=== PATIENT | male | born 1995 | race Caucasian/White ===

== ENCOUNTER 2018-07-10 09:34 | Outpatient (CLI) | payer BC ==
[2018-07-10] MEDS ORDERED: None at this time (11:19)
== END 2018-07-10 23:59 | disposition home or self-care (01) ==
LOC: STAR 09:34
PROVIDERS: ATTEND Surgery
DX: Z02.9 Encounter for administrative examinations, unspecified (principal)

== ENCOUNTER 2018-07-16 06:19 | Inpatient (IN) | payer BC ==
[2018-07-10 10:51] VITALS: BP 138/69
[~2018-07-16] VITALS: Ht 172.7 cm; Wt 63.6 kg
[~2018-07-16 06:19] MED LIST: None at this time
[2018-07-16] MEDS ORDERED: LACTATED RINGERS 1,000 ML IV SCH (07:24)
[2018-07-16] MEDS ORDERED: OXYcodone 5 MG/5 ML ORAL.SOL UDC PO PRN (07:30)
[2018-07-16] MEDS ORDERED: MIDAZOLAM 1 MG/ML, 2ML IV PRN (07:30)
[2018-07-16] MEDS ORDERED: ACETAMINOPHEN 325 MG TABLET PO PRN ×2 (07:30→13:00)
[2018-07-16] MEDS ORDERED: HYDROmorphone 2 MG/ML, 1ML IVPush PRN (07:30)
[2018-07-16] MEDS ORDERED: LABETALOL 5MG/ML, 20ML IV PRN (07:30)
[2018-07-16] MEDS ORDERED: EPHEDRINE 50 MG/ML, 1ML IM PRN (07:30)
[2018-07-16] MEDS ORDERED: HYDROcodone/APAP 7.5-325MG/15ML UDC PO PRN (07:30)
[2018-07-16] MEDS ORDERED: DEXAMETHASONE 4 MG/ML, 1ML IV PRN (07:30)
[2018-07-16] MEDS ORDERED: METOCLOPRAMIDE 5 MG/ML, 2ML IV PRN (07:30)
[2018-07-16] MEDS ORDERED: ONDANSETRON 2MG/ML, 2ML IV PRN (07:30)
[2018-07-16] MEDS ORDERED: DEXAMETHASONE 4 MG/ML, 1ML ONE (08:18)
[2018-07-16] MEDS ORDERED: PROPOFOL 10 MG/ML, 20ML ONE (08:18)
[2018-07-16] MEDS ORDERED: LIDOCAINE-MPF 2% ,5ML ONE (08:18)
[2018-07-16] MEDS ORDERED: GLYCOPYRROLATE 0.2MG/1ML, 5ML ONE (08:18)
[2018-07-16] MEDS ORDERED: ROCURONIUM 10MG/ML,5ML ONE (08:18)
[2018-07-16] MEDS ORDERED: FENTANYL PF 250 MCG/5ML ONE (08:19)
[2018-07-16] MEDS ORDERED: MIDAZOLAM 1 MG/ML, 2ML ONE (08:19)
[2018-07-16] MEDS ORDERED: BUPIVACAINE/PF-EPI 0.5% 1:200K ONE (08:47)
[2018-07-16] MEDS ORDERED: FENTANYL PF 100 MCG/2ML ONE (11:35)
[2018-07-16] MEDS ORDERED: OXYcodone 5 MG/5 ML ORAL.SOL UDC ONE (11:35)
[2018-07-16] MEDS: FENTANYL PF 100 MCG/2ML IV PRN ×2 (11:36→11:54)
[2018-07-16] MEDS ORDERED: hydrALAzine 20 MG/ML, 1ML IV PRN (13:00)
[2018-07-16] MEDS ORDERED: ACETAMINOPHEN 650 MG SUPP PR PRN (13:00)
[2018-07-16] MEDS: CALCIUM/VITAMIN D3 250-125 TABLET PO SCH ×2 (17:12→19:44)
[2018-07-16] MEDS: HYDROcodone/APAP 5/325 TABLET PO PRN ×2 (17:12→23:55)
[2018-07-16 18:25] VITALS: BP 110/66
[2018-07-16 19:48] VITALS: BP 117/74
[2018-07-16 23:44] VITALS: BP 108/67
[2018-07-17 03:22] VITALS: BP 110/64
[2018-07-17 05:38] LABS: CALCIUM 8.8 mg/dL (8.5-10.1)
[2018-07-17 07:24] VITALS: BP 113/65
[2018-07-17] MEDS: CALCIUM/VITAMIN D3 250-125 TABLET PO SCH (08:05)
[2018-07-17] MEDS: HYDROcodone/APAP 5/325 TABLET PO PRN (08:05)
[2018-07-17] MEDS ORDERED: HYDR-3240 PO (08:46)
[2018-07-17] MEDS ORDERED: LEVO137T2 PO (08:47)
== END 2018-07-17 09:25 | disposition home or self-care (01) | DRG 627 ==
LOC: OUT 06:19 → 4NOR 12:24 → OUT 13:13 → DCLOUNGE 07-17 09:06
PROVIDERS: ADMIT Surgery; ATTEND Surgery
PROC: 0GTH0ZZ Resection of Right Thyroid Gland Lobe, Open Approach (ICD-10-PCS; 2018-07-16)
PROC: 0GTG0ZZ Resection of Left Thyroid Gland Lobe, Open Approach (ICD-10-PCS; principal; 2018-07-16 08:30)
DX: C73 Malignant neoplasm of thyroid gland (principal); E04.2 Nontoxic multinodular goiter
CPT/HCPCS: 36415; J3490; 82310; 83970; 88305; 88307; 88333; G0378; J1100; J2250; J2704; J3010; C1760; J7120